=== PATIENT | female | born 1965 | race Caucasian/White ===

== ENCOUNTER → 2024-08-12 14:59 | Outpatient (REF) | payer OTHER, SELFPAY | LOC: RAD 14:59 | PROVIDERS: ATTENDING PHYSICIAN Family Medicine | DX: R10.9 Unspecified abdominal pain (principal) | CPT/HCPCS: 74177; Q9967 ==

== ENCOUNTER 2024-12-25 05:47 | Day surgery (SDC) | payer OTHER, SELFPAY ==
[2024-12-25 06:16] VITALS: BMI 29.4
[2024-12-25 06:25] VITALS: BP 139/82; BMI 29.4
[2024-12-25] MEDS: TYLENOL 1000 MG PO (06:28)
[2024-12-25] MEDS: NORMOSOL-R/PLASMALYTE-A 1000 IV (06:28)
[2024-12-25 08:12] VITALS: BP 98/76
[2024-12-25 08:15] VITALS: BP 106/64
[2024-12-25 08:30] VITALS: BP 111/60
[2024-12-25 08:45] VITALS: BP 117/69
[2024-12-25 09:00] VITALS: BP 116/68
== END 2024-12-25 09:10 | disposition home or self-care (01) ==
LOC: SDS 05:47
PROVIDERS: ATTENDING PHYSICIAN Surgery
DX: K42.9 Umbilical hernia without obstruction or gangrene (principal)
CPT/HCPCS: 49591; C1781